=== PATIENT | female | born 1960 | race Asian ===

== ENCOUNTER 2019-12-06 16:47 | Emergency (ER) | payer OTHER, MEDICAID ==
[~2019-12-06] VITALS: Ht 162.6 cm; Wt 63.5 kg
[2019-12-06 16:59] VITALS: BP_SYST 132
--- NOTE | 2019-12-06 17:03 | NUR ---
Patient triaged and placed on ems gurney. VSS and patient appears in no acute distress at this time. Accompanied by ems, awaiting available bed, and MD notified of need for MSE.
--- NOTE | 2019-12-06 17:10 | NUR ---
Placed in room 01 . Placed on teletypesetter monitor, blood pressure machine and pulse oximeter. To gown for exam. Side rails up. Report given to Balaji BOWDEN.
--- NOTE | 2019-12-06 17:20 | NUR ---
Pt AAOx0 BIB BLS from [facility] for medical clearance prior to admittance to [facility] for increased agitation and refusing medical care at facility. Pt rambling and unable to sit still in gurney. Skin pink dry and warm, breathing even and unlabored. No other injuries/complaints per pt/noted. Will continue to monitor.
--- NOTE | 2019-12-06 18:30 | NUR ---
PT AGITATED TALKING TO SELF AND YELLING OUT, REDIRECTABLE AT TIMES.
[2019-12-06 18:56] LABS: BILIRUBIN,URINE NEGATIVE (NEGATIVE); CLARITY/URINE SL CLOUDY (CLEAR); COLOR,URINE YELLOW (YELLOW); GLUCOSE,URINE NEGATIVE (NEGATIVE); KETONES,URINE NEGATIVE (NEGATIVE); LEUKOCYTE ESTERASE ,URINE TRACE (NEGATIVE); NITRITE, URINE POSITIVE (NEGATIVE); PROTEIN URINE NEGATIVE (NEGATIVE); UROBILINOGEN,URINE 0.2 (0.2-1.0)
[2019-12-06 18:59] LABS: BASOPHILS % (AUTO) 0.5 % (0.0-2.0); EOSINOPHILS # (AUTO) 0.2 K/uL (0.0-0.4); EOSINOPHILS % (AUTO) 2.8 % (0.0-4.0); HEMATOCRIT 39.8 % (36-48); HEMOGLOBIN 13.3 g/dL (12.0-16.0); LYMPHOCYTES # (AUTO) 1.4 K/uL (1.0-5.5); MEAN CORPUSCULAR HEMOGLOBIN 31 pg (27-31); MEAN CORPUSCULAR HGB CONC 34 % (32-36); MEAN CORPUSCULAR VOLUME 92 fL (79.0-98.0); MONOCYTES # (AUTO) 0.5 K/uL (0.0-1.0); MONOCYTES % (AUTO) 6.6 % (1.7-9.3); NEUTROPHILS # (AUTO) 5.6 K/uL (1.8-7.7); NEUTROPHILS % (AUTO) 72.1 % (40.0-70.0); PLATELET COUNT (AUTO) 331 K/uL (130-430); RED BLOOD CELL COUNT(AUTO) 4.32 MIL/uL (4.2-6.2); RED CELL DISTRIBUTION WIDTH 13.5 % (9.0-15.0); WHITE BLOOD COUNT (AUTO) 7.8 K/uL (4.8-10.8)
[2019-12-06 19:01] LABS: BLOOD, URINE TRACE (NEGATIVE)
[2019-12-06 19:04] LABS: BARBITURATE, URINE NEGATIVE (NEG <=200); BENZODIAZEPINE, URINE POSITIVE (NEG <=150); CANNABINOID, URINE NEGATIVE (NEG <=50); COCAINE, URINE NEGATIVE (NEG <=150); METHAMPHETAMINES SCREEN,URINE NEGATIVE (NEG <=500); OPIATE, URINE NEGATIVE (NEG <=100); PHENCYCLIDINE SCREEN,URINE NEGATIVE (NEG <=25); UR TRICYCLIC ANTIDEPRESSANTS NEGATIVE (NEG <=300); URINE AMPHETAMINE NEGATIVE (NEG <=500); URINE METHADONE NEGATIVE (NEG <=200); URINE OXYCODONE SCREEN NEGATIVE (NEG <=100); URINE PROPOXYPHENE SCREEN NEGATIVE (NEG <=300)
[2019-12-06 19:08] LABS: BACTERIA,URINE MANY /HPF (None Seen)
--- NOTE | 2019-12-06 19:10 | NUR ---
REPORT GIVEN TO ESSENCE WILD AND HDOA BOWDEN.
[2019-12-06 19:11] LABS: ANION GAP 9 (5-15); CALCIUM 9.5 mg/dL (8.4-11.0); CHLORIDE 104 mmol/L (98-107); CREATININE 0.64 mg/dL (0.55-1.30); GLUCOSE 96 mg/dL (70-99); POTASSIUM 4.1 mmol/L (3.5-5.1); SODIUM SERUM 142 mmol/L (136-145); UREA NITROGEN, BLOOD 14 mg/dL (8-21)
[2019-12-06 19:12] LABS: GFR AFRICAN AMERICAN 122 mL/min (>90)
[2019-12-06 19:17] LABS: ALANINE AMINOTRANSFERASE 23 U/L (12-78); ALBUMIN 3.8 g/dL (3.4-4.8); ASPARTATE AMINOTRANSFERASE 19 U/L (10-37); TOTAL BILIRUBIN 0.2 mg/dL (0.0-1.0)
[2019-12-06 19:18] LABS: CHOLESTEROL 202 mg/dL (<200); HDL CHOLESTEROL 85 mg/dL (>55); LDL CHOLESTEROL 94 mg/dL (<100); TRIGLYCERIDES 57 mg/dL (30-150)
[2019-12-06 19:22] LABS: ACETAMINOPHEN < 1 ug/mL (1-30); ALCOHOL, BLOOD < 3 mg/dL (<10)
[2019-12-06] MEDS ORDERED: cefTRIAXone 1 GM VIAL IM ONE (19:45)
[2019-12-06] MEDS ORDERED: LIDOCAINE 1%, 20 ML MDV 20 ML ONE (20:04)
--- NOTE | 2019-12-06 21:40 | NUR ---
[facility] called at [phone]. Report given to DENNISE Domingo. Explained Dx of UTI and treated with 1 g Rocephin and Rx for 500 mg Cipro to be given BID x 10 days. ETA is 2200 for [facility] transportation to arrive to [facility].
[2019-12-06 23:00] VITALS: BP_SYST 135
--- NOTE | 2019-12-06 23:00 | NUR ---
Patient to be transferred to [facility]. Is being transferred due to higher level of care. Receiving facility has accepting physician and available space. ER physician has signed transfer form. Patient or responsible green party has agreed to transfer and signed form. Patient belongings inventoried and will be sent with patient. Copy of nursing notes, lab reports, EKG, Physicians Orders and X-rays to be sent with patient. Report called to Chayo BOWDEN at receiving facility. Receiving physician is [facility] been called for transfer. ETA is now.
== END 2019-12-06 23:00 ==
LOC: SED 16:47
DX: F29 Unspecified psychosis not due to a substance or known physiological condition (principal); M19.90 Unspecified osteoarthritis, unspecified site; Z87.440 Personal history of urinary (tract) infections
CPT/HCPCS: 36415; 80053; 80061; 80307; 81000; 83036; 85025; 87081; 87086; 96372; 99285; G0480; G0481; G0482; J0696; J2001; 87186-TC